=== PATIENT | female | born 1990 | race Caucasian/White ===

== ENCOUNTER → 2018-02-09 11:54 | Outpatient (CLI) | payer SELFPAY ==
[2018-02-09 22:09] LABS: Chlamydia Trachomatis by PCR Negative (Negative); Neisserai gonorrhoeae by PCR Negative (Negative); Probe Check PASS; Sample Adequacy Control PASS; Specimen Processing Control PASS
[2018-02-13 06:42] LABS: HPV Reflexed? NOT INDICATED
== END ==
PROVIDERS: Visit Provider Obstetrics & Gynecology
DX: Z32.01 Encounter for pregnancy test, result positive (principal); Z12.4 Encounter for screening for malignant neoplasm of cervix; Z11.3 Encounter for screening for infections with a predominantly sexual mode of transmission
CPT/HCPCS: 87491; 87591; 88175; G0145

== ENCOUNTER → 2018-05-24 15:30 | Outpatient (CLI) | payer SELFPAY ==
[2018-05-25 13:57] LABS: Group B Strep DNA By PCR Negative (Negative); Internal Control PASS; Probe Check PASS; Specimen Processing Control PASS
== END ==
PROVIDERS: Visit Provider Obstetrics & Gynecology
DX: Z36.85 Encounter for antenatal screening for Streptococcus B (principal)
CPT/HCPCS: 87081; 87653

== ENCOUNTER 2018-06-24 00:25 | Inpatient (IN) | payer SELFPAY ==
[2018-06-24] VITALS (14 sets, daily range): BP systolic 90–113; BP diastolic 45–73; PULSE 60–90; RESP 16–18; TEMP 36.1–36.9; O2SAT 95–99; BMI 32.1
[2018-06-24] MEDS: Lactated Ringers 1,000 ML 50 ML IV ×2 (01:40→06:27)
[2018-06-24 01:58] LABS: Hemoglobin 11.7 g/dl (12.0-15.0); Mean Corp Hgb Conc 33.4 g/gl (32-36); Mean Corpuscular Hgb 28.8 pg (27.0-32.0); Mean Corpuscular Volume 86.2 fL (81-99); Mean Platelet Vol. 9.5 fl (6.2-12.0); Platelet Count 210 K/mm3 (150-450); RBC Distribution Width CV 13.9 % (11.6-14.6); RBC Distribution Width SD 43.1 fl (35.1-43.9); Red Blood Count 4.06 M/mm3 (4.2-5.4)
[2018-06-24 01:59] LABS: Scan Indicated on CBC? Y/N NO
[2018-06-24] MEDS: fentaNYL-bupivacaine (epidural) 100 ML BAG EPIDURAL ×3 (03:40→13:40)
--- NOTE | 2018-06-24 08:29 | PCM.PN.BLA ---
Progress Note LABOR PROGRESS NOTE No complaints. Comfortable with epidural. AVSS GEN - NAD< AAO x3 SVE 5/75/-2 with some cervical edema, OP TOCO 5/10 min FHR 120, moderate variability, + accelerations, no decelerations A/P: 28yo @ 40 5/7wga, TOLAC in labor, Cat IFHR -IUPC placed, if contractions inadequate will start pitocin. R/b/i pitocin reviewed. -Maternal and statuses reassuring.
[2018-06-24] MEDS: Oxytocin 30 units/NS 500 ml 30 UNITS/500 ML IV.SOLN IV (09:40)
--- NOTE | 2018-06-24 12:55 | PCM.PN.BLA ---
Progress Note LABOR PROGRESS NOTE No complaints. AVSS GEN - NAD, AAO x 3 SVE FD/0 station by my exam TOCO 5/10 min FHR Prolonged deceleration present to 80s bpm, FHR baseline 130, moderate variability, +accelerations, + variable decelerations A/P: 28yo @ 40 6/7wga TOLAC -FHR Cat II, overall reassuring. Fundus marked with tape. -Will continue pushing and reassess in 30 minutes for attempted vacuum delivery. Vacuum risks, benefits, indications reviewed. Patient and given opportunity to ask questions and questions answered to their satisfaction. -Maternal and statuses overall reassuring
[2018-06-24] MEDS: Sodium Citrate/Citric Acid 30 ML UDC PO ×2 (15:22→15:33)
[2018-06-24] MEDS: Oxytocin 30 units/NS 500 ml 30 UNITS/500 ML IV.SOLN 167 UNITS IV (16:09)
[2018-06-24] MEDS: Ketorolac 30 MG/ML Syringe IV ×2 (16:30→23:23)
--- NOTE | 2018-06-24 16:56 | PLAC_PTH ---
PATIENT: CAROLINA HAM LOC: [facility] U#:[id number] AGE/SX: 28/F ROOM: WP009 RE06/24/[address]: Dr. Mario Finch MD : 1990 BED: 1 DIS: 06/26/2018 SPEC #: [id number] RECD: 06/27/18 09:03 STATUS: JOSSELYN SHANE #: [id number] CRISTINO: 06/24/18 16:[address]: Mario Finch DEPT: SURGICAL PATHOLOGY RECD BY: Haylee Flood Tissues: Placenta, NOS Procedures: Surgery Specimen Level V HEADER OPERATION: Repeat section PRE-OP DIAGNOSIS: Meconium TISSUE SUBMITTED: Placenta MICROSCOPIC DIAGNOSIS Placenta: Placental disc - third trimester placenta (510 gm) with a succenturiate lobe. - Focal central areas of intraparenchymal hemorrhage with adjacent infarction. - Focal increased intervillous and perivillous fibrin deposition. See comment. Membranes ? acute chorioamnionitis. Umbilical cord - three blood vessels and acute funisitis. SJ:rg 06/28/18 COMMENT The peripheral lesion also shows the area of increased intervillous and perivillous fibrin deposition. MICROSCOPIC DESCRIPTION Slides are reviewed. GROSS DESCRIPTION SPECIMEN: PLACENTA / CLINICAL INFORMATION: A. Weight: 3.417 kg B. Gestational Age: 40 weeks C. Sex: Male PLACENTAL WEIGHT (POST FIXATION): 510 gm PLACENTAL DIMENSIONS: Main placenta measures 16 x 15 x 4 and the succenturiate lobe measures 4 x 3 x 1 cm. PLACENTAL SHAPE: Usual ovoid with a succenturiate lobe. PLACENTAL WEIGHT FOR GESTATIONAL AGE: Within 10-99th percentile MEMBRANES - Present A. Insertion: Marginal B. Site of rupture from edge: at edge of placental disc C. Color of membrane: Kerr, mucoidy D. Abnormalities: None UMBILICAL CORD - Present A. Color: Kerr-olmstead B. Insertion: Paracentral C. Length: 41 cm D. Diameter: 1 cm E. Number of vessels: Three F. Abnormalities: Focal area shows increased spiraling. Focal area of decreased spiraling is also noted. PLACENTAL DISC - Present A. Color of surface: Kerr-olmstead B. surface abnormalities: None C. Maternal cotyledons: Intact with minimal tears D. Attached retro placental clot: No clot E. Cut surface: Dark red and spongy F. Lesions: Sections reveal two kerr, indurated areas in the central portion of the specimen and one in the peripheral portion of the specimen. The lesions in the central portion of the placenta each measure 1 cm in greatest dimension and the peripheral portion of the specimen measures 1.5 cm in greatest dimension. G. Separate clot: Absent SECTIONS SUBMITTED: 1. Membrane roll 2. Cord, maternal end, succenturiate lobe 3. Cord, end, succenturiate lobe 4. Placental disc, and maternal surfaces, central lesion 5. Placental disc, and maternal surfaces, central lesion 6. Placental disc, and maternal surfaces, peripheral lesion SJ:rg 06/27/18 TC:2 CPT: 39437
--- NOTE | 2018-06-24 17:01 | PCM.OB.CSR ---
- Problem List (1) Arrest of descent, delivered, current hospitalization Status: Acute Delivery Classification: EDEN Final VANNA: 06/19/18 Final VANNA Source: US <20 weeks Gestational age: 40 Weeks and 5 Days doctor who attended delivery (if requested by OB): Edna Mcmullen Indications for : Arrrest of Descent Description of Procedure: Progressed to FD then [pushed for over 2 hours with no descent of the head. Recurrent variable heart rate decelerations. Previous delivery. Amniotic Membrane Rupture Type: Artificial Amniotic Fluid Description: Clear Placenta Disposition: Sent to Pathology Specimen(s) sent to pathology: placenta Drain: Quan to straight drain Fluids Replaced: 1500cc Cord Entanglement: None Cord Vessel Description: 3 Vessels Esitmated Blood Loss (ml): 600cc Infant Gender: Male (1 minute): 9 (5 minute): 9 Delayed cord clamping: No Pre-op Antibiotic Given: Ancef 2 grams IV x1 Pt instructed on risks of surgery: Bleeding, Infection, Need for Future C-Sections, Injury to surrounding structure(s) including bowel and bladder Complications: None - Admit VTE Documentation VTE Present on Admission: No VTE Mechan Device Prophylaxis: SCD's VTE Pharm Prophylaxis ordered?: No
--- NOTE | 2018-06-24 17:05 | OP.PCM_ITS ---
- Problem List (1) Arrest of descent, delivered, current hospitalization Status: Acute Delivery Classification: EDEN Final VANNA: 06/19/18 Final VANNA Source: US <20 weeks Gestational age: 40 Weeks and 5 Days doctor who attended delivery (if requested by OB): Edna Mcmullen Indications for : Arrrest of Descent Description of Procedure: Progressed to FD then [pushed for over 2 hours with no descent of the head. Recurrent variable heart rate decelerations. Previous delivery. Amniotic Membrane Rupture Type: Artificial Amniotic Fluid Description: Clear Placenta Disposition: Sent to Pathology Specimen(s) sent to pathology: placenta Drain: Quan to straight drain Fluids Replaced: 1500cc Cord Entanglement: None Cord Vessel Description: 3 Vessels Esitmated Blood Loss (ml): 600cc Infant Gender: Male (1 minute): 9 (5 minute): 9 Delayed cord clamping: No Pre-op Antibiotic Given: Ancef 2 grams IV x1 Pt instructed on risks of surgery: Bleeding, Infection, Need for Future C- Sections, Injury to surrounding structure(s) including bowel and bladder Complications: None - Admit VTE Documentation VTE Present on Admission: No VTE Mechan Device Prophylaxis: SCD's VTE Pharm Prophylaxis ordered?: No
--- NOTE | 2018-06-24 17:12 | OP.PCM_ITS ---
Problem List (1) Arrest of descent, delivered, current hospitalization Status: Acute Report of Operation Date of Procedure: 06/24/18 Pre-Operative Diagnosis: Arrest of Descent in Active Labor, Previous Delivery Post-Operative Diagnosis: Same Surgery/Procedure Performed:: Repeat Low Transverse Section Description of Surgical Findings:: Maximum descent of the vertex 0 station despite two hours of pushing efforts. Thick meconium noted upon entry to the uterine cavity. Live male in vertex presentation. Apgars 9/9. weight 7lb14 oz. Normal appearing uterus, ovaries, and fallopian tubes. No significant pelvic or abdominal adhesions noted. assistant cross country coach: Rosalinda Prasad Type of Anesthesia:: Epidural Anesthesiologist: José Rosas Special Medications: none Specimen's removed: placenta, cord blood Drains: oviedo Estimated Blood Loss (mL): 600cc Fluids Replaced: 1500cc Description of Procedure: Indications, risks, and potential complications discussed with Judith and her prior to taking to the operating room. SHe was given two grams of Ancef intravenously prior to incision. Her epidural was dosed and then she was prepped and draped in the supine position with a leftward tilt. A oviedo catheter had been previously placed. Anesthesia was checked and found to be adequate. A Pfannensteil skin incision was then made with the scalpel through the previous scar. The underlying subcutaneous tissue was dissected down to the level of fascia using sharp and blunt dissection. The fascia was then incision in the midline and this incision was extended bilaterally using the Huntley scissors. The upper portion of the fascia was then grasped with two Apple clamps elevated and the rectus muscles dissected off with blunt and sharp dissection. In a similar fashion the rectus muscles were dissected off the lower fascia. The rectus muscles were then in the midline and the peritoneal cavity entered. The peritoneal defect was then enlarged using blunt retraction. A bladder blade was then placed. The vesicouterine peritoneum was entered and aand a bladder flap was created. The lower uterine segment was then incised with the scalpel. Once the cavity was entered this defect was enlarged using blunt lateral and superior traction. The baby's head was then delivered atraumatically followed by the body. The nose and mouth was suctioned with a bulb suction. The cord was clamped and cut. The baby was then handed to the waiting nursing staff for evaluation by Dr. Mcmullen. The placenta was then delivered manually. The uterus was exteriorized and then cleared of all clot and membranes. The uterine incision was then repaired in two layers with #1 Vicryl suture. Were necessary additional sutures of the same material were used to affect excellent hemostasis. The posterior cul de sac was then cleared of all clot and fluid. The uterus was returned to the abdomen. The gutters were cleared of all clot and fluid. The uterine incision was reinspected and found to be hemostatic. The peritoneum was then closed with a running stitch of 2-0 vicryl. The rectus muscles were reapproximated with interrupted sutures of 0-Vicryl. The subcutaneous tissue was closed with a running stitch of 2-0 Vicryl. The skin was closed with a subcuticular stitch of 4-0 Monocryl. Sponge, lap, needle, and instrument counts were correct. She was taken to her recovery room in stable condition. Grafts/Implants Used: none - Complications none - Admit VTE Documentation VTE Present on Admission: No VTE Mechan Device Prophylaxis: SCD's VTE Pharm Prophylaxis ordered?: No
[2018-06-24] MEDS: Lactated Ringers 1,000 ML 100 ML IV (17:15)
--- NOTE | 2018-06-24 17:31 | DCINST_ITS ---
Discharge Diet: No Restrictions Discharge Activity: Return to Normal Activity, May Not Drive, May not drive while taking narcotic pain medications., May Shower Return to work on:: 08/05/18 May resume sexual activity in: 6 weeks Call your doctor if your incision/area has: Continuous Slow Oozing, Sudden Increased Bleeding, Increased Pain/ Swelling, Increased Redness, Foul Smelling Discharge, Swelling at the incision site Call your doctor if you observe: Fever of 101 or Higher, Inability to urinate, Inability to have a bowel movement, Using more than one pad per hour, Shortness of breath, Chest pain, Calf discomfort, Uncontrolled pain Remove Dressing in (days):: 3 Cleanse incision/area with: Soap & Water Additional Instructions: If you experience any of the following, contact your healthcare provider. * Bleeding that soaks a pad every hour for 2 hours * Fever 100.4 or higher * Unrelieved incision or abdominal pain * Swelling, redness, discharge or bleeding from your incision or episiotomy site * Your incision begins to separate * Problems urinating (including inability to urinate or burning while urinating) . * Visual changes * Severe headache * Flu-like symptoms * Pain or redness in one of both of your breasts * Pain, warmth, tenderness or swelling in your legs, especially the calf area * Frequent nausea and vomiting * Symptoms of depression or anxiety If you experience any of the following, call 911 or go to the nearest Emergency Room. * Chest pain * Problems breathing * Seizure activity * Partial or complete paralysis of a body part, slurred speech, weakness or drooping of the face, or a sudden inability to walk or hold your balance Allergies/Adverse Reactions: Allergies No Known Allergies Allergy (Verified 06/24/18 01:29) Medications to take at Discharge Ibuprofen 600 mg PO Q6H PRN PRN #30 tab 06/24/18 Oxycodone [Oxyir] 5 - 10 mg PO Q4H PRN PRN 7 Days #20 tab 06/24/18 Vits [Prenatabs FA ] 1 tablet PO DAILY 06/24/18 The following prescriptions were given: Oxycodone [Oxyir] 5 - 10 mg PO Q4H PRN PRN 7 Days #20 tab PRN Reason: Mod-Severe Pain (-09/07) Ibuprofen 600 mg PO Q6H PRN PRN #30 tab PRN Reason: pain or cramping Follow-Up: Call to make an appointment with your doctor for an incision check in 1-2 weeks. You will also need a 6 week post- follow up appointment. Test results from this visit will be discussed in further detail at your follow- up appointment, if applicable. Please Follow Up With: Altaf Christie MD - or Dr. Finch When: one to two weeks Proposed Discharge Date: 06/27/18
--- NOTE | 2018-06-24 19:10 | NURSING ---
Bedside shift report given to Rosa Sarkar RN. She will assume care of patient at this time.
[2018-06-24] MEDS: Cefazolin 1 GM/50 ML BAG IV (23:23)
[2018-06-25] VITALS (13 sets, daily range): BP systolic 89–111; BP diastolic 42–55; PULSE 58–89; RESP 16–18; TEMP 36–37; O2SAT 95–99
[2018-06-25] MEDS: Ketorolac 30 MG/ML Syringe IV ×3 (06:16→17:53)
[2018-06-25 06:37] LABS: Hematocrit 25.7 % (37-47); Hemoglobin 8.6 g/dl (12.0-15.0); Mean Corp Hgb Conc 33.5 g/gl (32-36); Mean Corpuscular Hgb 29.6 pg (27.0-32.0); Mean Corpuscular Volume 88.3 fL (81-99); Mean Platelet Vol. 9.4 fl (6.2-12.0); Platelet Count 160 K/mm3 (150-450); RBC Distribution Width CV 13.8 % (11.6-14.6); RBC Distribution Width SD 41.9 fl (35.1-43.9); Red Blood Count 2.91 M/mm3 (4.2-5.4); White Blood Count 12.9 K/mm3 (4.4-11.0)
[2018-06-25 06:38] LABS: Scan Indicated on CBC? Y/N NO
[2018-06-25] MEDS: Cefazolin 1 GM/50 ML BAG IV (07:57)
--- NOTE | 2018-06-25 08:32 | PCM.PN.OB ---
Patient Problems: Active and Suspected Problems Arrest of descent, delivered, current hospitalization (Acute) Subjective: Some soreness but no specific complaints. Breast feeding. Bleeding light Objective: Afeb VSS. Hgb appropriate. Urine output adequate. - Physical Exam General: Alert, Oriented x3, Cooperative, No apparent distress Lungs: Clear to auscultation, Normal air movement Cardiovascular: Regular rate, Regular Rhythm Abdomen: Soft, Non Tender, Non-Distended, - - Fundus firm nontender. Incision dressing dry. Extremities: Edema - 1+ pedal Skin: No rashes Neurological: Neuro grossly intact Psych/Mental Status: Normal Affect Comment: Lochia light Vital Signs Temp Pulse Resp BP Pulse Ox 98.3 F 89 16 89/53 L 97 06/25/18 06:00 06/25/18 06:00 06/25/18 06:00 06/25/18 06:00 06/25/18 06:00 Oxygen Delivery Method Room Air Weight: 175 lb 6.4 oz Body Mass Index (BMI) 32.1 Intake and Output for Last 24 Hours 06/23/18 06/24/18 06/25/18 23:59 23:59 23:59 Intake Total 6835 / 6835 828 / 828 Output Total 2950 / 2950 700 / 700 Balance 3885 / 3885 128 / 128 Laboratory Tests Past 24 Hrs 06/25/18 06:15 WBC 12.9 H RBC 2.91 L Hgb 8.6 L Hct 25.7 L MCV 88.3 MCH 29.6 MCHC 33.5 RDW 13.8 RDW Differential 41.9 Plt Count 160 MPV 9.4 Medical Necessity - Tobacco Use Smoking Status: Never smoker Assessment/Plan All Active Problems Arrest of descent, delivered, current hospitalization (Acute) Doing well on POD#1. Continue routine PO care. D/C ivelisse later this afternoon.
[2018-06-25] MEDS: Senna/Docusate Sodium 1 Tablet PO (11:31)
[2018-06-25] MEDS: Prenatal Vits Tablet 1 TABLET PO (11:31)
[2018-06-25] MEDS: 0.9% Saline Lock 10 ML Syringe IV ×2 (11:32→17:53)
[2018-06-26] MEDS: Ibuprofen 600 MG Tablet PO ×3 (00:45→13:26)
--- NOTE | 2018-06-26 07:08 | PCM.PN.OB ---
Patient Problems: Active and Suspected Problems Arrest of descent, delivered, current hospitalization (Acute) Subjective: Doing well on POD#2. No specific complaints. Breast feeding. Objective: Afeb VSS - Physical Exam General: Alert, Oriented x3, Cooperative, No apparent distress Lungs: Clear to auscultation, Normal air movement Cardiovascular: Regular rate, Regular Rhythm Abdomen: Soft, Non Tender, Non-Distended, - - Incision dressing dry. Fundus firm nontender. Extremities: No edema, No Calf Tenderness Skin: No rashes Neurological: Neuro grossly intact Psych/Mental Status: Normal Affect Comment: Lochia light. Vital Signs Temp Pulse Resp BP Pulse Ox 98.5 F 58 L 16 111/51 L 99 06/25/18 23:00 06/25/18 23:00 06/25/18 23:00 06/25/18 23:00 06/25/18 23:00 Oxygen Delivery Method Room Air Weight: 175 lb 6.4 oz Body Mass Index (BMI) 32.1 Intake and Output for Last 24 Hours 06/24/06/25/18 06/26/18 23:59 23:59 23:59 Intake Total 6835 / 6835 954 / 954 Output Total 2950 / 2950 2350 / 2350 Balance 3885 / 3885 -1396 / -1396 Medical Necessity - Tobacco Use Smoking Status: Never smoker Assessment/Plan All Active Problems Arrest of descent, delivered, current hospitalization (Acute) Doing well on POD#2. Cleared for discharge home today. Home going instructions and warnings given.
--- NOTE | 2018-06-26 07:10 | PCM.DC.SUM ---
Discharge Date and Diagnosis - Problem List Patient Problems: Active and Suspected Problems Arrest of descent, delivered, current hospitalization (Acute) Date of Admission: 06/24/18 Date of Discharge: 06/26/18 - Primary Discharge Diagnosis Active and Suspected Problems Arrest of descent, delivered, current hospitalization (Acute) Hospital Course and Treatment Consultations 06/24/18 01:29 Consult: Anesthesia Routine Comment: Reason For Exam: LABOR Operations: - - Repeat LTCS Procedures: - - Epidural. Summary of Care Provided: The patient is a 28 year old F [admitted in labor for trial of . Progressed to FD then pushed for two hours without change in station. Repeat C/S performed without complication with delivery of live male without complication. Post operative course unremarkable. DIscharged home on POD#2.] Discharge Diet: No Restrictions Discharge Activity: Return to Normal Activity, May Not Drive, May not drive while taking narcotic pain medications., May Shower Return to work on:: 08/05/18 May resume sexual activity in: 6 weeks Call your doctor if your incision/area has: Continuous Slow Oozing, Sudden Increased Bleeding, Increased Pain/ Swelling, Increased Redness, Foul Smelling Discharge, Swelling at the incision site Call your doctor if you observe: Fever of 101 or Higher, Inability to urinate, Inability to have a bowel movement, Using more than one pad per hour, Shortness of breath, Chest pain, Calf discomfort, Uncontrolled pain Remove Dressing in (days):: 3 Cleanse incision/area with: Soap & Water Home Medications: Medications to take at Discharge Ibuprofen 600 mg PO Q6H PRN PRN #30 tab 06/24/18 Oxycodone [Oxyir] 5 - 10 mg PO Q4H PRN PRN 7 Days #20 tab 06/24/18 Vits [Prenatabs FA ] 1 tablet PO DAILY 06/24/18 Following Prescrptions Were Given to Patient: Oxycodone [Oxyir] 5 - 10 mg PO Q4H PRN PRN 7 Days #20 tab PRN Reason: Mod-Severe Pain (4-10/10) Ibuprofen 600 mg PO Q6H PRN PRN #30 tab PRN Reason: pain or cramping Please Follow Up With: Altaf Christie MD - or Dr. Finch When: one to two weeks Disposition: Home Minutes spent on discharge:: 15 Patient Condition:: Good Medical Necessity - Tobacco Use Smoking Status: Never smoker Meaningful Use Info Meaningful Use Diagnoses (Choose all that apply): None applicable
[2018-06-26 07:57] VITALS: BP 101/46; PULSE 71; RESP 16; TEMP 36.6; O2SAT 97
[2018-06-26] MEDS: Senna/Docusate Sodium 1 Tablet PO (08:21)
[2018-06-26] MEDS: Prenatal Vits Tablet 1 TABLET PO (11:59)
[2018-06-26 12:20] VITALS: BP 103/56; PULSE 89; RESP 16; TEMP 36.8; O2SAT 97
[2018-06-28 15:42] LABS: Pathology Specimen OB SEE PATHOLOGY REPORT
--- NOTE | 2018-07-02 13:33 | NURSING ---
follow up call attempted left message
== END 2018-06-26 13:40 | disposition home or self-care (01) | DRG 766 ==
PROVIDERS: Obstetrics & Gynecology; Admitting Provider Obstetrics & Gynecology; Visit Provider Obstetrics & Gynecology
DX: O34.211 Maternal care for low transverse scar from previous cesarean delivery (principal); N85.8 Other specified noninflammatory disorders of uterus; Z3A.40 40 weeks gestation of pregnancy; Z37.0 Single live birth; O77.0 Labor and delivery complicated by meconium in amniotic fluid; O62.1 Secondary uterine inertia; O48.0 Post-term pregnancy; O76 Abnormality in fetal heart rate and rhythm complicating labor and delivery
CPT/HCPCS: 59050; 85027; 86850; 86900; 88307; 99218; J7120; A4216; G0378